=== PATIENT | male | born 1965 | race Caucasian/White ===

== ENCOUNTER 2023-04-28 09:00 | Outpatient (RCR) | payer OTHER, SELFPAY ==
--- NOTE | 2023-03-17 15:48 | ST.OPPOC ---
Physical, Occupational & Speech Therapy At [facility] Visit Care Team Role Provider Type Donato Field MD Family Provider Non-Staff Primary Care Provider Address: [address], [place], [address] LEXIE Lai Attending Provider Non-Staff Referring Provider Address: [address] [place], [address] Speech Pathology Plan of Care Plan of Care Dates 03/17/23-06/15/[address] Eloy Jon Patient History Pt is a 57 year old male seen this date for cognitive-linguistic evaluation. Pt present for evaluation and provided most case history. Pt's reports he had a stroke in 2006 and has residual memory loss and executive functioning deficits. Pt and Pt also report they are confused why he was referred and not sure what the evaluation is about. ST educated Pt and Pt on referral and reason for evaluation. Pt compliant with proceeding with evaluation with requesting he at least be seen a few times. They report he has established a good daily routine and has improved a lot since his stroke. Pt reports he was in a skilled nursing post CVA for a couple months but was not receiving a lot of therapy. No other past medical history reported. Self-awareness of Cognitive- Situational awareness (re Communication Deficits Short Term Goals STG 1: Patient will complete standardized testing to guide POC. STG 2: Patient will demonstrate increase short term recall for functional/daily life information with 90% of opportunities given environmental modifications implemented and by using visual aids in order to increase independence. STG 3: Patient with demonstrate knowledge of memory/executive function compensatory strategies given education. Jail Goals LTG 1: Patient will increase memory skills using compensatory strategies as trained, using visual/auditory aids as needed in order increase safety during ADLs and promote independence. LTG 2: Patient will increase functional problem solving skills with occasional Verbal Cues and occasional Visual cues in order to increase safety during ADLs, increase safety during daily living tasks, and promote independence. Comment: Electronically Signed by: JOSHUA Mcclellan 03/17/23 [id number] If you are in agreement with this Plan of Care, please return a signed and dated copy. I have reviewed this Plan of Care and certify that the skilled therapy services above are required to meet the patient?s needs. Physician Signature Date Printed Name and Credentials Clinical Instructor Signature Printed Name and Credentials
--- NOTE | 2023-03-17 15:48 | ST.OPIE ---
Visit Care Team Role Provider Type Donato Field MD Family Provider Non-Staff Primary Care Provider Specialty: Neurology Address: [address], [place], [address] Email: LEXIE Lai Attending Provider Non-Staff Referring Provider Specialty: Nursing Address[address] [place], [address] Email: Speech-Language Pathology Initial Evaluation VP INFORMATICS Adult Cognitive Linguistic Eval Start: 03/17/23 11:20 Freq: Status: Active Protocol: Document 03/17/23 11:20 RHIANNON (Rec: 03/17/23 11:22 RHIANNON [id number]) Adult Cognitive Linguistic Evaluation Session Time Visit Start Time 10:30 Visit Stop Time 11:15 Total Visit Minutes 45 Visit Information Visit Number Initial Evaluation Plan of Care Dates 03/17/23-06/15/23 Insurance Information [place] Referral Referring Provider Dr. Eloy Jon Reason for Referral Amnesia Setting Assessment Location Outpatient Care Visit Type Note Type Initial evaluation Next Note Type Next Note Type Treatment Note Patient Information Identification Type Name Patient History Pt is a 57 year old male seen this date for cognitive- linguistic evaluation. Pt present for evaluation and provided most case history. Pt 's reports he had a stroke in 2006 and has residual memory loss and executive functioning deficits . Pt and Pt also report they are confused why he was referred and not sure what the evaluation is about. ST educated Pt and Pt on referral and reason for evaluation. Pt compliant with proceeding with evaluation with requesting he at least be seen a few times. They report he has established a good daily routine and has improved a lot since his stroke. Pt reports he was in a halfway post CVA for a couple months but was not receiving a lot of therapy . No other past medical history reported. Hearing Hearing Level Normal Vision Vision Status Impaired Comments Left neglect. Utilizes glasses with prisms to help. Previous Therapy Previous Speech-Language Therapy Yes History of Therapy Outpatient speech therapy in 2007 for 6 months Subjective Patient Report Pt reports continued memory and executive function deficits, however has improved since CVA in 2006. Pt reports if she tells him to do something he won't always remember and needs the information repeated. She reports he engages in croosswords and other brain games on the computer and watches TV. He is responsible for his medications and writes down when he has taken them and when he is running low on certain meds. When taking a message from a phone call he won't always remember what the message is. However, reports he remembers details of certain information, it just fluctuates. Pt states he won't tow picker on cues to do things, such as the grass is getting long and needs information presented literally, such as You need to mow the lawn. He doesn't cook, however will fix himself lunch and he is currently not driving. He reports he utilizes a calendar to keep track of information, which helps. Assessment Oral Motor Examination Completed No Informal Assessment Receptive Language Normal No Expressive Language Normal Yes Pragmatic Language Normal Yes Speech Normal Yes Cognition Normal No Formal Assessment Standardized Test/Screener Type Cognitive Linguistic Quick Test (CLQT) Administration Initiated Results ST initiated CLQT with plan to complete test during next session d/t a time constraint. Pt scored the following on each section so far: Personal facts: 08/15 symbol cancellation: 04/17 confrontation namin/10 clock drawin/13 story retellin07/18 symbol trails: 03/20 Pt demonstrated difficulties recalling age and with problem solving/executive functions. He appeared impulsive and quick to complete tasks which may have impacted performance. He demonstrated strengths with confrontation naming. Findings/Results Language Function Mildly impaired Cognitive Function Moderately impaired Findings Pt presents with a mild-mod cognitive-linguistic communication deficits characterized by memory and executive function deficits. Pt may benefit from skilled ST services in order to learn and utilizing memory enhancing compensatory strategies along with internal/external aids and executive function strategies. Pt with mild reduced motivation for therapy , however agreeable to attend a few sessions. Cognitive Communication Deficits Self-awareness of Cognitive- Situational awareness ( Communication Deficits recognition of problem in context;in real time) Concomitant Factors Concomitant Factors Visual field neglect Prognosis Prognosis Fair Plan of Care Speech-Language Treatment Yes Frequency 1x/week Duration 3 months Patient/Caregiver Education Patient expressed agreement with goals and treatment plans ,Family/caregivers expressed understanding of evaluation, Patient requires further education/training,Family/ caregivers require further education/training Short Term Goals STG 1: Patient will complete standardized testing to guide POC. STG 2: Patient will demonstrate increase short term recall for functional/ daily life information with 90 % of opportunities given environmental modifications implemented and by using visual aids in order to increase independence. STG 3: Patient with demonstrate knowledge of memory/executive function compensatory strategies given education. Continuous Linter Drier Operator Goals LTG 1: Patient will increase memory skills using compensatory strategies as trained, using visual/auditory aids as needed in order increase safety during ADLs and promote independence. LTG 2: Patient will increase functional problem solving skills with occasional Verbal Cues and occasional Visual cues in order to increase safety during ADLs, increase safety during daily living tasks, and promote independence.
--- NOTE | 2023-03-24 12:19 | ST.OPTN ---
Visit Care Team Role Provider Type Donato Field MD Family Provider Non-Staff Primary Care Provider Address: [address], [place], [address] LEXIE Lai Attending Provider Non-Staff Referring Provider Address: [address] [place], [address] AGRICULTURAL AND FORESTRY SUPERVISOR Treatment Note AGRICULTURAL AND FORESTRY SUPERVISOR Treatment Note Start: 03/24/23 12:11 Freq: Status: Active Protocol: Document 03/24/23 12:11 MA (Rec: 03/24/23 12:18 MA [id number]) Speech Pathology Treatment Note Session Time Visit Start Time 10:30 Visit Stop Time 11:15 Total Visit Minutes 45 Visit Information Visit Number 2 Plan of Care Dates 03/17/23-06/15/23 Setting Treatment Setting Outpatient Care Next Note Type Next Note Type Treatment Note General Information Patient History Pt is a 57 year old male seen this date for cognitive- linguistic evaluation. Pt present for evaluation and provided most case history. Pt 's reports he had a stroke in 2006 and has residual memory loss and executive functioning deficits . Pt and Pt also report they are confused why he was referred and not sure what the evaluation is about. ST educated Pt and Pt on referral and reason for evaluation. Pt compliant with proceeding with evaluation with requesting he at least be seen a few times. They report he has established a good daily routine and has improved a lot since his stroke. Pt reports he was in a [facility] post CVA for a couple months but was not receiving a lot of therapy . No other past medical history reported. Subjective Observations/Patient Presentation Pt arrived on time with his who accompanied him to therapy. Objective Short Term Goals STG 1: Patient will complete standardized testing to guide POC. STG 2: Patient will demonstrate increase short term recall for functional/ daily life information with 90 % of opportunities given environmental modifications implemented and by using visual aids in order to increase independence. STG 3: Patient with demonstrate knowledge of memory/executive function compensatory strategies given education. Computer Systems Security Analyst Goals LTG 1: Patient will increase memory skills using compensatory strategies as trained, using visual/auditory aids as needed in order increase safety during ADLs and promote independence. LTG 2: Patient will increase functional problem solving skills with occasional Verbal Cues and occasional Visual cues in order to increase safety during ADLs, increase safety during daily living tasks, and promote independence. Treatment Activities Cognitive Linguistic Quick Test (CLQT) Assessment Patient Response to Treatment Fair Assessment of Improvement ST completed administration of CLQT in order to guide POC. Pt scored a total score of 2.2 indicating a severity rating of moderate. He scored the following on each section- attention 82- moderate memory 120- memory executive functions 17- moderate language 28-mild visouspatial skills 46- moderate clock drawing 11- mild He demonstrated strengths in language and clock drawing and deficits in attention, memory and executive functions. His reports he has improve with his attention. ST reviewed test and POC with Pt and Pt . Pt reported he isn't sure about attending therapy. He states his atroke happenend so long ago and he has established a routine and method for recalling information that works for him . Pt reports Pt has had cognitive improvements since his stroke, however she is worried about the furture for him. ST reviewed benefits of therapy and what therapy would look like going forward. Pt reports she would like him to at least come back one more time. Plan Provided Patient/Caregiver Instruction Questions/Concerns
--- NOTE | 2023-03-30 10:26 | ST.OPTN ---
Visit Care Team Role Provider Type Donato Field MD Family Provider Non-Staff Primary Care Provider Address: [address], [place], [address] LEXIE Lai Attending Provider Non-Staff Referring Provider Address: [address], [place], [address] MIXER WET POUR Treatment Note MIXER WET POUR Treatment Note Start: 03/24/23 12:11 Freq: Status: Active Protocol: Document 03/30/23 10:22 MA (Rec: 03/30/23 10:26 MA [id number]) Speech Pathology Treatment Note Session Time Visit Start Time 09:45 Visit Stop Time 10:20 Total Visit Minutes 35 Visit Information Visit Number 3 Plan of Care Dates 03/17/23-06/15/23 Setting Treatment Setting Outpatient Care Next Note Type Next Note Type Treatment Note General Information Patient History Pt is a 57 year old male seen this date for cognitive- linguistic evaluation. Pt present for evaluation and provided most case history. Pt 's reports he had a stroke in 2006 and has residual memory loss and executive functioning deficits . Pt and Pt also report they are confused why he was referred and not sure what the evaluation is about. ST educated Pt and Pt on referral and reason for evaluation. Pt compliant with proceeding with evaluation with requesting he at least be seen a few times. They report he has established a good daily routine and has improved a lot since his stroke. Pt reports he was in a [facility] post CV[facility] for a couple months but was not receiving a lot of therapy . No other past medical history reported. Subjective Observations/Patient Presentation Pt arrived on time with his who accompanied him to therapy. Objective Short Term Goals STG 1: Patient will complete standardized testing to guide POC. STG 2: Patient will demonstrate increase short term recall for functional/ daily life information with 90 % of opportunities given environmental modifications implemented and by using visual aids in order to increase independence. STG 3: Patient with demonstrate knowledge of memory/executive function compensatory strategies given education. Drainage Design Coordinator Goals LTG 1: Patient will increase memory skills using compensatory strategies as trained, using visual/auditory aids as needed in order increase safety during ADLs and promote independence. LTG 2: Patient will increase functional problem solving skills with occasional Verbal Cues and occasional Visual cues in order to increase safety during ADLs, increase safety during daily living tasks, and promote independence. Treatment Activities Memory tasks and strategies Assessment Patient Response to Treatment Fair Assessment of Improvement Pt reports she got Pt a large calendar to start tracking appointments and also a journal to start writing information down. ST provided a handout on daily journal prompts and encouraged Pt to incorporate journaling into his daily routine. She also reports she wants to dig out old memory activities and exercises provided right after his stroke. Pt reports he is a big routine person and it's hard for him to go outside of his routine. ST educated Pt on internal and external memory aids. ST assessed use of word association strategy to assist with recall during a 5 unrelated word recall task. Pt recalled 5 unrelated items with use of association strategy with about 20% accuracy requiring mild verbal cues. ST provided memory homework to work on with at home. Pt compliant with coming for another appointment . Plan Provided Patient/Caregiver Instruction Questions/Concerns
--- NOTE | 2023-04-14 12:09 | ST.OPTN ---
Visit Care Team Role Provider Type Donato Field MD Family Provider Non-Staff Primary Care Provider Address: [address], [place], [address] LEXIE Lai Attending Provider Non-Staff Referring Provider Address: [address] [place], [address] OINTMENT MILL TENDER Treatment Note OINTMENT MILL TENDER Treatment Note Start: 03/24/23 12:11 Freq: Status: Active Protocol: Document 04/14/23 12:05 RHIANNON (Rec: 04/14/23 12:09 MA [id number]) Speech Pathology Treatment Note Session Time Visit Start Time 11:15 Visit Stop Time 11:55 Total Visit Minutes 40 Visit Information Visit Number 4 Plan of Care Dates 03/17/23-06/15/23 Setting Treatment Setting Outpatient Care Next Note Type Next Note Type Treatment Note General Information Patient History Pt is a 57 year old male seen this date for cognitive- linguistic evaluation. Pt present for evaluation and provided most case history. Pt 's reports he had a stroke in 2006 and has residual memory loss and executive functioning deficits . Pt and Pt also report they are confused why he was referred and not sure what the evaluation is about. ST educated Pt and Pt on referral and reason for evaluation. Pt compliant with proceeding with evaluation with requesting he at least be seen a few times. They report he has established a good daily routine and has improved a lot since his stroke. Pt reports he was in a senior care post CVA for a couple months but was not receiving a lot of therapy . No other past medical history reported. Subjective Observations/Patient Presentation Pt arrived on time with his who accompanied him to therapy. Objective Short Term Goals STG 1: Patient will complete standardized testing to guide POC. STG 2: Patient will demonstrate increase short term recall for functional/ daily life information with 90 % of opportunities given environmental modifications implemented and by using visual aids in order to increase independence. STG 3: Patient with demonstrate knowledge of memory/executive function compensatory strategies given education. Exhaust And Muffler Repairer Goals LTG 1: Patient will increase memory skills using compensatory strategies as trained, using visual/auditory aids as needed in order increase safety during ADLs and promote independence. LTG 2: Patient will increase functional problem solving skills with occasional Verbal Cues and occasional Visual cues in order to increase safety during ADLs, increase safety during daily living tasks, and promote independence. Treatment Activities Memory tasks and strategies Assessment Patient Response to Treatment Fair Assessment of Improvement Pt brought in notebook that he is utilizing as a journal as recommended during last session. He showed therapist that he has written a couple sentences on each day of what he did. ST encouraged Pt to continue to utilize notebook to write down daily information to assist with recall. Pt reports she has been practicing word associations with him to assist with memory recall. She cued him during session by saying flag and requesting he recall the associated word, however he required cues to recall other word. ST also encouraged Pt to continue practicing word association memory strategy with . ST assessed memory recall of daily information with use of questions. Pt recalled daily information with about 70% accuracy requiring mild verbal cues. Pt compliant with scheduling a couple more appointments. Plan Provided Patient/Caregiver Instruction Questions/Concerns
--- NOTE | 2023-04-28 09:32 | ST.OPDS ---
Visit Care Team Role Provider Type Donato Field MD Family Provider Non-Staff Primary Care Provider Address: [address], [place], [address] LEXIE Lai Attending Provider Non-Staff Referring Provider Address: [address] [place], [address] REGISTERED MAIL CLERK Treatment Note REGISTERED MAIL CLERK Treatment Note Start: 03/24/23 12:11 Freq: Status: Active Protocol: Document 04/28/23 09:27 MA (Rec: 04/28/23 09:32 MA [id number]) Speech Pathology Treatment Note Session Time Visit Start Time 09:00 Visit Stop Time 09:30 Total Visit Minutes 30 Visit Information Visit Number 5 Plan of Care Dates 03/17/23-06/15/23 Setting Treatment Setting Outpatient Care Visit Type Note Type Discharge Summary General Information Patient History Pt is a 57 year old male seen this date for cognitive- linguistic evaluation. Pt present for evaluation and provided most case history. Pt 's reports he had a stroke in 2006 and has residual memory loss and executive functioning deficits . Pt and Pt also report they are confused why he was referred and not sure what the evaluation is about. ST educated Pt and Pt on referral and reason for evaluation. Pt compliant with proceeding with evaluation with requesting he at least be seen a few times. They report he has established a good daily routine and has improved a lot since his stroke. Pt reports he was in a retirement post CVA for a couple months but was not receiving a lot of therapy . No other past medical history reported. Subjective Identification Type Name Others Present Family Observations/Patient Presentation Pt arrived on time with his who accompanied him to therapy. Objective Short Term Goals STG 1: Patient will complete standardized testing to guide POC. - MET STG 2: Patient will demonstrate increase short term recall for functional/ daily life information with 90 % of opportunities given environmental modifications implemented and by using visual aids in order to increase independence.- MET STG 3: Patient with demonstrate knowledge of memory/executive function compensatory strategies given education. - MET Woodworking Machine Setter Goals LTG 1: Patient will increase memory skills using compensatory strategies as trained, using visual/auditory aids as needed in order increase safety during ADLs and promote independence. - MET LTG 2: Patient will increase functional problem solving skills with occasional Verbal Cues and occasional Visual cues in order to increase safety during ADLs, increase safety during daily living tasks, and promote independence. - MET Treatment Activities Discharge recommendations Assessment Patient Response to Treatment Good Progress Towards Goals Appropriate for Discharge Assessment of Improvement ST facilitated conversation with Pt and Pt in regards to discharge plan d/t the following: Pt and Pt report he has a routine and has developed strategies to assist with memory/problem solving over the years that work for him. He reports no difficulties completing most everyday tasks. Pt reports increased independence doing household tasks, characterized by him asking Do I have to go mow the lawn? and then mowed the lawn without trouble. Pt reports occasional memory difficulties , but again utilizes the strategies he has developed and work for him. Pt able to recall about 90% of recent events during session. ST recommended Pt continue to utilize strategies as well as daily journal to assist with recall as well as memory strategies taught during previous sessions. Pt reports she learned a lot ini these sessions and will continue with home program. ST encouraged Pt to return if symptoms become worse. Pt verbalized understanding. Plan Provided Patient/Caregiver Instruction Home Exercise Program,Plan of Care,Questions/Concerns
== END 2023-05-03 10:20 | disposition home or self-care (01) ==
LOC: SP 09:00
PROVIDERS: Family Provider Psychiatry & Neurology Neurology; PCP Psychiatry & Neurology Neurology; Referring Provider Nurse Practitioner Family; Visit Provider Nurse Practitioner Family
DX: R41.3 Other amnesia (principal)
CPT/HCPCS: 92507; 92523